=== PATIENT | male | born 1995 | race Caucasian/White ===

== ENCOUNTER 2025-02-25 13:17 | Emergency (ER) | payer MEDICAID ==
[~2025-02-25] VITALS: Ht 177.8 cm; Wt 118.0 kg
[2025-02-25 13:23] VITALS: TEMP 36.7; O2SAT 99
[2025-02-25] MEDS: KETOROLAC 30MG/ML VIAL IM STA (13:35)
[2025-02-25 13:44] LABS: BASOPHILS % 1.1 % (0.0-2.0); EOSINOPHILS % 3.5 % (0.0-5.0); HEMATOCRIT. 42.7 % (42.0-52.0); HEMOGLOBIN. 14.4 g/dL (14.0-18.0); LYMPHOCYTES % 32.9 % (20.0-50.0); MEAN CORPUSCULAR HEMOGLOBIN 27.9 pg (28.0-32.0); MEAN CORPUSCULAR HGB CONC 33.6 g/dL (31.0-37.0); MEAN CORPUSCULAR VOLUME 82.8 fL (80.0-94.0); MEAN PLATELET VOLUME 8.5 fl (7.4-10.4); MONOCYTES % 5.5 % (2.0-8.0); PLATELET 334 x1000/uL (130-400); RED BLOOD CELL COUNT 5.15 mill/uL (4.7-6.1); RED CELL DISTRIBUTION WIDTH 13.5 % (11.6-14.6); WHITE BLOOD COUNT 8.2 x1000/uL (4.5-11.0)
[2025-02-25 13:51] LABS: CHLORIDE 107 mEq/L (98-107); POTASSIUM 4.2 mEq/L (3.5-5.1); SODIUM 139 mEq/L (136-145)
[2025-02-25 13:52] LABS: CARBON DIOXIDE 25 mEq/L (21-32)
[2025-02-25 13:53] LABS: CALCIUM 9.6 mg/dL (8.7-10.4)
[2025-02-25 13:57] LABS: CREATININE 1.1 mg/dL (0.6-1.3); GLUCOSE 115 mg/dL (70-105)
[2025-02-25 13:58] LABS: UREA NITROGEN BLOOD 14 mg/dL (9-23)
[2025-02-25 13:59] LABS: ALANINE AMINOTRANSFERASE 57 IU/L (10-49); ALBUMIN 4.7 g/dL (3.2-4.8); ASPARTATE AMINOTRANSFERASE 26 IU/L (<34); BILIRUBIN DIRECT 0.1 mg/dL (<=3.0)
[2025-02-25 14:00] LABS: BILIRUBIN TOTAL 0.5 mg/dL (0.1-1.0); PROTEIN TOTAL 7.4 g/dL (6.0-8.3)
[2025-02-25] MEDS: SODIUM CHLORIDE 0.9% 1,000 ML IV ONE (16:08)
[2025-02-25 17:38] LABS: CLARITY URINE CLOUDY (CLEAR); COLOR URINE YELLOW (YELLOW); GLUCOSE URINE NEGATIVE (NEGATIVE); KETONES URINE TRACE (NEGATIVE); LEUKOCYTE ESTERASE URINE NEGATIVE (NEGATIVE); NITRITE URINE NEGATIVE (NEGATIVE); OCCULT BLOOD URINE 3+ (NEGATIVE); PROTEIN URINE NEGATIVE (NEGATIVE); SPECIFIC GRAVITY URINE 1.023 (1.005-1.030); UROBILINOGEN URINE 0.2 E.U./dL (0.2-1.0)
[2025-02-25 17:52] LABS: BACTERIA URINE NONE SEEN; SQUAMOUS EPITHELIAL CELL URINE 1+ /lpf (RARE/1+); WBC URINE 0-2 /hpf (0-2)
[2025-02-25] MEDS ORDERED: TAMS-54 MT (17:59)
[2025-02-25] MEDS ORDERED: IBUP-2029 MT (17:59)
[2025-02-25 18:00] VITALS: BP 133/89; PULSE 83; RESP 18; O2SAT 98
== END 2025-02-25 18:20 | disposition home or self-care (01) ==
LOC: ER 13:17
DX: N13.6 Pyonephrosis (principal)
CPT/HCPCS: 99285; 74176; 96360; 80076; 80048; 81003; 83690; 85025; 36415; 96372; J1885; J7030